=== PATIENT | male | born 1935 ===

== ENCOUNTER 2017-01-24 15:44 | Outpatient (CLI) | payer MEDICAID | END 2017-01-24 15:45 | disposition home or self-care (01) | LOC: LABHHL 15:44 | PROVIDERS: ATTEND Internal Medicine Gastroenterology | DX: D64.9 Anemia, unspecified (principal); K29.70 Gastritis, unspecified, without bleeding; K30 Functional dyspepsia; K92.1 Melena | CPT/HCPCS: 88305; 88342 ==